=== PATIENT | female | born 1990 | race Caucasian/White ===

== ENCOUNTER 2017-07-16 17:18 | Emergency (ER) | payer OTHER, BC ==
[~2017-07-16] VITALS: Ht 165.1 cm; Wt 88.5 kg
[~2017-07-16 17:18] MED LIST: ADVIL200 MG PO; BUPROPION XL150 MG PO; DEPO-PROVE150 MG/1 M IM; DOXEPIN HCL10 MG PO; DOXEPIN HCL25 MG PO; FLOMAX0.4 MG PO; GLUCOPHAGE500 MG PO; KEFLEX500 MG PO; LORAZEPAM1 MG PO; MEDROXYPRO150 MG/1 M IM; NORCO 5-325 TA1 EACH PO; OMEPRAZOLE20 MG PO; PERCOCET 5-3251 EACH PO; SILENOR6 MG; VITAMIN D10000 UNIT PO; VITAMIN D250000 UNIT PO; ZOFRAN ODT8 MG PO; ZOFRAN4 MG PO
[2017-07-16] MEDS ORDERED: IBUPROFEN600 MG PO (22:30)
== END 2017-07-16 22:36 | disposition home or self-care (01) ==
LOC: ED 17:18
DX: S09.90XA Unspecified injury of head, initial encounter (principal); S16.1XXA Strain of muscle, fascia and tendon at neck level, initial encounter; F17.200 Nicotine dependence, unspecified, uncomplicated; Z87.442 Personal history of urinary calculi; Z88.8 Allergy status to other drugs, medicaments and biological substances; Z79.899 Other long term (current) drug therapy; V89.2XXA Person injured in unspecified motor-vehicle accident, traffic, initial encounter
CPT/HCPCS: 72040; 84703; 99283

== ENCOUNTER 2017-10-19 12:56 | Emergency (ER) | payer BC ==
[~2017-10-19] VITALS: Ht 165.1 cm; Wt 88.5 kg
[~2017-10-19 12:56] MED LIST changes: +IBUPROFEN600 MG PO
[2017-10-19] MEDS ORDERED: PERCOCET 5-3251 EACH PO (15:31)
== END 2017-10-19 15:50 | disposition home or self-care (01) ==
LOC: ED 12:56
DX: N13.2 Hydronephrosis with renal and ureteral calculous obstruction (principal); F17.200 Nicotine dependence, unspecified, uncomplicated; Z88.8 Allergy status to other drugs, medicaments and biological substances; Z87.442 Personal history of urinary calculi
CPT/HCPCS: 74176; 80053; 81001; 84703; 85025; 96374; 96375; 99284; J1885; J2405

== ENCOUNTER 2017-11-02 07:05 | Day surgery (SDC) | payer BC ==
[~2017-11-02] VITALS: Ht 165.1 cm; Wt 89.8 kg
--- NOTE | 2017-11-02 08:48 | NUR ---
PATIENT TO SURGERY.
--- NOTE | 2017-11-02 10:51 | NUR ---
11/02/17 1051 Raissa Raza 1032 PT ARRIVED TO PACU, AWAKE. VITALS TAKEN. PT CURRENTLY ON 6L VIA MASK. PER FOOD PHOTOGRAPHER PT'S O2 IMPROVES WITH COUGH AND DEEP BREATHING. PT DENIES NAUSEA. RATES PAIN 12/08. IV INFUSING. 1044 PAIN MEDICATION GIVEN.
--- NOTE | 2017-11-02 11:30 | NUR ---
PATIENT ARRIVED TO DAY SURGERY. PATIENT REPORTS PAIN 6/10 TO RIGHT FLANK, PATIENT DENIES NAUSEA. FAMILY IN ROOM WITH PATIENT. PATIENT IS HAVING SIPS OF WATER, ON 2L O2 FOR 95% 1130 PATIENT TO 1L OF O2 FOR 93%
--- NOTE | 2017-11-02 11:38 | NUR ---
PATIENT IS EATING JELLO, RADHA CRACKERS, AND SIPS OF WATER. PATIENT IS TOLERATING PO WELL, PLAN TO GIVE PAIN PILL SOON.
[2017-11-02] MEDS ORDERED: BACTRIM DS TAB1 EACH PO (11:51)
[2017-11-02] MEDS ORDERED: OXYBUTYNIN CHLOR5 MG PO (11:52)
[2017-11-02] MEDS ORDERED: PYRIDIUM200 MG PO (11:53)
[2017-11-02] MEDS ORDERED: PERCOCET 10-321 EACH PO (11:57)
--- NOTE | 2017-11-02 12:20 | NUR ---
PT UP TO BR WITH RN ASSIST. PT AMBULATES WELL AND DENIES NAUSEA AND/OR DIZZINESS. PT VOIDS 100 MLS RED URINE. PT STATES URINATION WAS "PAINFUL, ABOUT A 6 OUT OF 10." PT BACK IN BED WITH SCD'S IN PLACE AND IV FLOWING CONTINUOUSLY. CALL LIGHT AT PT LEFT SIDE.
--- NOTE | 2017-11-02 12:57 | NUR ---
DC CRITERIA MET. PT AGREES SHE IS READY TO GO HOME. PT S.O. AT BEDSIDE.
--- NOTE | 2017-11-02 13:12 | NUR ---
PT DRESSES SELF. DC INSTRUCTIONS ARE GIVEN IN PRESENCE OF PT AND S.O. PT VERBALIZES AN UNDERSTANDING OF DC INSTUCTIONS AND HAS NO FURTHER QUESTIONS. PT DC'S VIA WC FROM SHIRLEY RM 4.
--- NOTE | 2017-11-09 09:14 | OR ---
[facility] [address] [place], [place] [address] Signed DATE OF OPERATION: 11/02/2017 SURGEON: Virginia Nava MD PREOPERATIVE DIAGNOSIS: A 9 mm right ureteral calculus. POSTOPERATIVE DIAGNOSIS: A 9 mm right ureteral calculus. NAMES OF PROCEDURES: 1. Diagnostic cystoscopy with right retrograde pyelogram. 2. Right flexible nephroureteroscopy with laser lithotripsy and basket extraction of stones. 3. Right ureteral stent exchange. ANESTHESIA: General. ESTIMATED BLOOD LOSS: Minimal. COMPLICATIONS: None. SPECIMENS: Fragments of right ureteral calculus sent to the lab for stone analysis. DRAINS: A 6 x 24 cm double-J ureteral stent exchanged in the right ureter. INDICATIONS FOR PROCEDURE: Ms. Bird is a very pleasant 27-year-old female with a previous history of nephrolithiasis, who was taken to the operating room last week in an attempt to undergo definitive management of an obstructing 9 mm proximal right ureteral calculus. After multiple attempts obtaining access into the ureter and right kidney, the procedure was aborted due to the diminutive diameter of the patient's ureter. At that time, an indwelling ureteral stent was inserted into the right collecting system. She presents today to undergo definitive stone extraction. Electronically Signed By: VIRGINIA NAVA MD 11/09/17 0914 PATIENT NAME: ASHANTI BIRD OPERATIVE REPORT DATE OF : 89 REPORT #: [id number] PHYSICIAN: VIRGINIA NAVA MD PCP: AZEB GIBBONS DO REPORT IS CONFIDENTIAL AND NOT TO BE RELEASED WITHOUT AUTHORIZATION [facility] [address] [place], [place] [address] Signed OPERATIVE FINDINGS: On cystoscopy, there was no evidence of any suspicious masses, lesions, or stones. She has an indwelling right ureteral stent in place. Right retrograde pyelogram revealed multiple filling defects within the mid and upper poles of the right kidney. It also revealed adequate placement of the ureteral access sheath prior to fragmentation. Flexible nephroureteroscopy revealed a rather large stone present in the ureteropelvic junction of the right kidney. The stone was fragmented using a 270 micron fiber at energy level and rate of 8.8. The stone fragmented easily and 95% of the fragments were extracted from the right collecting system using a Zero tip basket without difficulty. The indwelling ureteral stent was removed prior to beginning the stone fragmentation process. A fresh 6 x 24 cm double-J ureteral stent was inserted at the end of the procedure and placement was confirmed on fluoroscopy. DESCRIPTION OF PROCEDURE: After informed consent was obtained, the patient was taken back to the operating room. She was transferred from the [facility] to the operating room table, where general anesthesia was induced. She was placed in the dorsal lithotomy position and her genitalia prepped and draped in a sterile fashion. Using a 30-degree lens on 22.5-Mongolian sheath, rigid cystoscope was inserted through the urethra into her bladder. I was able to visualize the indwelling right ureteral stent, which was then removed to the level of the urethral meatus. I passed a 0.035 Sensor wire into the lumen of the indwelling stent up to the right collecting system. The indwelling stent was then removed fully intact, leaving the wire behind. Over the wire, a 13/15 ureteral access sheath was passed into the right collecting system under fluoroscopic guidance. A right retrograde pyelogram was then performed. Please see above findings. The inner cannula was then removed and a flexible ureteroscope was then passed through the sheath and up into the right collecting system. Flexible nephroureteroscopy revealed the presence of an approximately 9 mm right ureteropelvic junction calculus. The stone was fragmented using a 270 micron fiber. The stone fragmented easily and the fragments were then extracted 1 x 1 using a Zero tip basket. Overall, I was able to extract approximately 95% of the stone burden. The remaining fragments are easily less than 1 mm and she should easily be able to pass the fragments. Once I was satisfied the significant amount of stone burden had been removed, I would through the ureteral scope and passed a Sensor wire back into the ureteral access sheath. The ureteral access sheath was then removed. Over the wire, a 6 x 24 cm double-J ureteral stent was passed into the collecting system under direct visualization. Once the wire was pulled, I was able to appreciate an adequate coil within the right renal pelvis along with an adequate distal coil on cystoscopy. The patient's bladder was then drained and the specimens were Electronically Signed By: VIRGINIA NAVA MD 11/09/17 0914 PATIENT NAME: ASHANTI BIRD OPERATIVE REPORT DATE OF : [birth year] REPORT #: [id number] PHYSICIAN: VIRGINIA NAVA MD PCP: AZEB GIBBONS DO REPORT IS CONFIDENTIAL AND NOT TO BE RELEASED WITHOUT AUTHORIZATION [address] [address] Signed placed in a specimen cup. The procedure was then terminated. The patient tolerated the procedure well without any complication. She will now be transferred to the postanesthesia care unit in stable condition. DISPOSITION: I discussed the details of today's procedure with the patient's mother and answered all of her questions. The patient will be scheduled to return to the clinic in three days to undergo cystoscopy with right ureteral stent extraction. She was sent home today with Bactrim Double Strength one tab p.o. b.i.d. for seven days, along with Percocet 10/325 #30 p.r.n. pain. She was also given oxybutynin and Pyridium as needed for frequency and dysuria. MD YEYO Boateng/MODL /[id number] Copies: ~ Electronically Signed By: VIRGINIA NAVA MD 11/09/17 0914 PATIENT NAME: ASHANTI BIRD OPERATIVE REPORT DATE OF : [birth year] REPORT #: [id number] PHYSICIAN: VIRGINIA NAVA MD PCP: AZEB GIBBONS DO REPORT IS CONFIDENTIAL AND NOT TO BE RELEASED WITHOUT AUTHORIZATION
== END 2017-11-02 13:10 | disposition home or self-care (01) ==
LOC: DS 07:05 → OPS 07:05 → DS 08:15 → OPS 08:15
PROVIDERS: Urology
PROC: 0TC68ZZ Extirpation of Matter from Right Ureter, Via Natural or Artificial Opening Endoscopic (ICD-10-PCS; principal; 2017-11-02 08:15)
PROC: 0T768DZ Dilation of Right Ureter with Intraluminal Device, Via Natural or Artificial Opening Endoscopic (ICD-10-PCS; 2017-11-02 08:15)
PROC: BT1DYZZ Fluoroscopy of Right Kidney, Ureter and Bladder using Other Contrast (ICD-10-PCS; 2017-11-02 08:15)
DX: N20.1 Calculus of ureter (principal); F17.210 Nicotine dependence, cigarettes, uncomplicated; K21.9 Gastro-esophageal reflux disease without esophagitis; Z88.8 Allergy status to other drugs, medicaments and biological substances; Z87.442 Personal history of urinary calculi
CPT/HCPCS: 00910; 76000; 82365; C2617; J0696; J1100; J1170; J1885; J2250; J2405; J2704; J3010; J7120

== ENCOUNTER 2020-01-27 02:21 | Emergency (ER) | payer OTHER ==
[~2020-01-27] VITALS: Ht 165.1 cm; Wt 111.1 kg
--- OUTSIDE RECORDS SUMMARY | ~2020-01-27 | XMS | Encounter Summary ---
Demographics + + + | Address | [address] | | | [place] [address] | + + + | Home Phone | | + + + | Preferred Language | Unknown | + + + | Marital Status | Single | + + + | Restorationism Affiliation | Unknown | + + + | Race | White | + + + | Ethnic Group | Not or | + + + Author + + + | Author | [facility] | | | and [place] | + + + | Organization | [facility] | | | and [place] | + + + | Address | Unknown | + + + | Phone | Unavailable | + + + Support + + + + + | Name | Relationship | Address | Phone | + + + + + | Per Pt None | ECON | NA | | | | | NA, | | + + + + + | /Fritz Eldridge | ECON | [address] | | | | | [place] | | | | | [address] | | + + + + + Care Team Providers + +------+ + | Care Registered Dental Hygienist Name | Role | Phone | + +------+ + PCP | Unavailable | + +------+ + Encounter Details +--------+ + + + + | Date | Type | Department | Care Team | Description | +--------+ + + + + | 05/14/ | Hospital | [facility] | Holly Barrera | | | 2012 | Encounter | [facility] | DO Marcia Ochoa | | | | | [facility] [address] | [place], [place] | | | | | [place], [place] | [address] | | | | | [address] | | | | | | [phone] | Pratik Black | | | | | | MD Rafael [address] | | | | | [address] [facility] | | | | | | [place] [address] | | | | | | [phone] | | | | | | | | +--------+ + + + + Social History + +-------+ +--------+------+ | Tobacco Use | Types | Packs/Day | Years | Date | | | | | Used | | + +-------+ +--------+------+ | Never Assessed | | | | | + +-------+ +--------+------+ + + + | Sex Assigned at | Date Recorded | | | | + + + | Not on file | | + + + documented as of this encounter ED Notes Holly Barrera MD - 05/14/2013 7:57 [place] [address] Patient Name: ASHANTI ELDRIDGE Provider: Unit #: [id number] Location: : 1990 DATE: 05/14/2013 HISTORY OF PRESENT ILLNESS: The patient is a 22-year-old female who comes in with chief co mplaint of abdominal pain. The patient states that she has been having bilateral flank pain that has been radiating into her right lower quadrant and pelvic area that has been ongoin g now for about 2 or 3 hours. She states that she also has had some dysuria that has been g oing on for about a day. She does did not notice that there was any blood in her urine. The patient states that she does not think that she is . She is in the middle of her m enses. She states that she has not had any loss of appetite. She has had no nausea, no vomi ting, no diarrhea. She does not complain of any kind of constipating type issues or blood i n her stool. REVIEW OF SYSTEMS There is some dysuria type issue. She has had no abnormal vaginal discharge. She is denyin g any fevers , chills, cough, trouble breathing or chest pain. The patient states that her last pelvic exam was 6 months ago. She has some cervical atypia and is seen every 6 months. She has never had any history of an STD. PAST MEDICAL HISTORY: She states that her medical problems include vitamin D deficiency an d she is prediabetic. SOCIAL HISTORY: The patient states that she smokes 1/2 pack cigarettes. She denies illicit drug use or alcohol use at this time. MEDICATIONS: The patient states that she takes metformin. ALLERGIES: SHE HAS ADVERSE REACTIONS TO SUMATRIPTAN. PHYSICAL EXAMINATION VITAL SIGNS: Show a temperature of 99.8, respiratory rate 18, heart rate 74, blood pressur e 130/93. She is 97% on room air. GENERAL: The patient is alert, appears to be in no acute distress. HEENT: Essentially normal. The oropharynx is clear. NECK: Normal on inspection. RESPIRATORY: There is no respiratory distress and breath sounds normal. CARDIOVASCULAR: She is regular rate and rhythm. ABDOMEN: Soft. She has a little bit of pain in her periumbilical area and a slight amount of pain in the right lower quadrant. There is no rebound, rigidity or guarding and she has active bowel sounds. BACK: Normal to inspection. SKIN: Warm and dry. EXTREMITIES: Nontender. NEURO/PSYCH: She is alert and oriented. EMERGENCY ROOM COURSE: The patient had a CBC that was completely normal. She had a Serum p regnancy test that was negative and she had a CBC that was completely normal. The patient h ad an IV placed. She received some Toradol and Zofran and had improvement of her pain, and her KUB showed no acute process. DIAGNOSES 1. ABDOMINAL PAIN, ETIOLOGY UNCLEAR. 2. MILD STOOL RETENTION. PLAN: The patient is to go home and hydrate. She is given a prescription for Zofran and tr amadol for pain. If pain worsens or recurs or if there is vomiting or fever greater than 10 1.5, she needs to return for a recheck. Advised to drink about half a bottle of mag citrate with 3 to four 8-ounce glasses of water to cleanse out the bowels. The patient voiced unde rstanding of discharge instructions and ambulated from the ER without difficulty. DICTATED BY: Don Barrera DO Emergency Medicine JOB #: [id number] EXT JOB #:[id number] <<Signature on File>> Sade Alfaro O107/20/12 1522 < documented in this encounter Plan of Treatment Not on filedocumented as of this encounter Procedures + +--------+ + + + | Procedure Name | Priori | Date/Time | Associated Diagnosis | Comments | | | ty | | | | + +--------+ + + + | XR ABDOMEN AP | Routin | 05/15/2013 | | Results for this | | | e | 8:50 AM | | procedure are in the | | | | PST | | results section. | + +--------+ + + + | , SERUM, | Routin | 05/14/2013 | | Results for this | | QUAL | e | 3:56 PM | | procedure are in the | | | | PST | | results section. | + +--------+ + + + | CBC WITH | Routin | 05/14/2013 | | Results for this | | DIFFERENTIAL | e | 3:46 PM | | procedure are in the | | | | PST | | results section. | + +--------+ + + + | LIPASE | Routin | 05/14/2013 | | Results for this | | | e | 3:46 PM | | procedure are in the | | | | PST | | results section. | + +--------+ + + + | COMPREHENSIVE | Routin | 05/14/2013 | | Results for this | | METABOLIC PANEL | e | 3:46 PM | | procedure are in the | | | | PST | | results section. | + +--------+ + + + | URINALYSIS, REFLEX | Routin | 05/14/2013 | | Results for this | | MICROSCOPIC AND/OR | e | 3:24 PM | | procedure are in the | | CULTURE | | PST | | results section. | + +--------+ + + + documented in this encounter Results XR Abdomen AP (05/15/2013 8:50 AM PST) + + | Specimen | + + | | + + + + + | Narrative | Performed At | + + + | [facility] | [place] | | Department [address] [place] [address] | [facility] | | [ rep [address]] [ rep [facility] | | st zip] Signed | - IMAGING | | | | | Patient Name: ASHANTI ELDRIDGE Physician: | | | HERSONAnnabelleA : 1990 Age: 22 Sex: F Unit #: [id number] | | | Exam Date: 05/14/13 Location: ER | | | Report #: [id number] Page: | | | %(RAD)RES..mtdd.print.filter("pg") of %(RAD) | | | RES..mtdd.print.filter("tpg") | | | | | | Accession Number: [id number] | | | ABDOMEN, ONE VIEW CLINICAL HISTORY: BILATERAL FLANK PAIN. | | | LOW ABDOMINAL PAIN AND DYSURIA. COMPARISON: None. | | | FINDINGS: Abdominal radiographs. No dilated loops of | | | bowel. Stool and gas are present throughout the colon. No | | | abnormal soft tissue calcifications. The osseous structures are | | | unremarkable. IMPRESSION: 1. NEGATIVE ABDOMINAL | | | RADIOGRAPHS. Dictated Date/Time: 05/15/2013 08:50 | | | Transcribed Date/Time: 05/15/2013 08:54 Purchasing Coordinator: | | | <<Signature on File>> | | | Alexis | | | Arleth Montano MD05/15/13 0957 <Electronically signed by Alexis Reinoso | | | Charmaine NAGY> Alexis Montano MD 05/15/13 0850 | | | Purchasing Coordinator: Hector Brennan05/15/13 0854 | | | | | + + + + + + + + | Performing | Address | City/State/[facility] | Phone Number | | Organization | | | | + + + + + | [facility] | [address] | [place] | [phone] | | [facility] | | [address] | | | - IMAGING | | | | + + + + + HCG, Serum, Qual (05/14/2013 3:56 PM PST) + + + + + + | Component | Value | Ref Range | Performed | Pathologist | | | | | At | Signature | + + + + + + | Preg, Serum | NEGATIVEComment: | NEGATIVE | [facility] | | | | @INTERNAL CONTROL OK?: | | [facility] | | | | RED CONTROL LINE | | MEDICAL | | | | APPEARS? YES | | CENTER - | | | | | | LABORATORY | | + + + + + + + + | Specimen | + + | | + + + + + + + | Performing | Address | City/State/Zipcode | Phone Number | | Organization | | | | + + + + + | [facility] | [address] | [place] | [phone] | | [facility] | | [address] | | | - LABORATORY | | | | + + + + + | [facility] | [address] | [place], [place] | | | [facility] | | [address] | | | - LABORATORY | | | | + + + + + CBC with Differential (05/14/2013 3:46 PM PST) + + + + + + | Component | Value | Ref Range | Performed | Pathologist | | | | | At | Signature | + + + + + + | MANUAL | NO | | [facility] | | | DIFFERENTIA | | | [facility] | | | L ? | | | MEDICAL | | | | | | CENTER - | | | | | | LABORATORY | | + + + + + + | White Blood | 11.0 | 4.0 - 11.0 K/uL | [facility] | | | Cells | | | [facility] | | | | | | MEDICAL | | | | | | CENTER - | | | | | | LABORATORY | | + + + + + + | Red Blood | 4.37 | 3.70 - 5.20 | [facility] | | | Cells | | M/uL | [facility] | | | | | | MEDICAL | | | | | | CENTER - | | | | | | LABORATORY | | + + + + + + | Hemoglobin | 13.5 | 11.5 - 16.0 | [facility] | | | | | gm/dL | [facility] | | | | | | MEDICAL | | | | | | CENTER - | | | | | | LABORATORY | | + + + + + + | Hematocrit | 39.3 | 34.0 - 47.0 % | [facility] | | | | | | [facility] | | | | | | MEDICAL | | | | | | CENTER - | | | | | | LABORATORY | | + + + + + + | MCV | 90.1 | 83.0 - 101.0 fL | [facility] | | | | | | [facility] | | | | | | MEDICAL | | | | | | CENTER - | | | | | | LABORATORY | | + + + + + + | MCH | 31.0 | 28.0 - 35.0 pg | [facility] | | | | | | [facility] | | | | | | MEDICAL | | | | | | CENTER - | | | | | | LABORATORY | | + + + + + + | MCHC | 34.5 | 32.0 - 36.0 | [facility] | | | | | g/dL | [facility] | | | | | | MEDICAL | | | | | | CENTER - | | | | | | LABORATORY | | + + + + + + | RDW-CV | 12.5 | <15.0 % | [facility] | | | | | | [facility] | | | | | | MEDICAL | | | | | | CENTER - | | | | | | LABORATORY | | + + + + + + | Platelet | 176 | 140 - 440 K/uL | [facility] | | | Count | | | [facility] | | | | | | MEDICAL | | | | | | CENTER - | | | | | | LABORATORY | | + + + + + + | % | 76.9 (H) | 45 - 75 % | [facility] | | | Neutrophils | | | [facility] | | | | | | MEDICAL | | | | | | CENTER - | | | | | | LABORATORY | | + + + + + + | % | 16.4 (L) | 20 - 45 % | [facility] | | | Lymphocytes | | | [facility] | | | | | | MEDICAL | | | | | | CENTER - | | | | | | LABORATORY | | + + + + + + | % Monocytes | 5.2 | 4 - 12 % | [facility] | | | | | | [facility] | | | | | | MEDICAL | | | | | | CENTER - | | | | | | LABORATORY | | + + + + + + | % | 0.6 | 0 - 5 % | [facility] | | | Eosinophils | | | [facility] | | | | | | MEDICAL | | | | | | CENTER - | | | | | | LABORATORY | | + + + + + + | % Basophils | 0.9 | 0 - 1 % | [facility] | | | | | | [facility] | | | | | | MEDICAL | | | | | | CENTER - | | | | | | LABORATORY | | + + + + + + | Absolute | 8.4 (H) | 1.5 - 6.6 K/uL | [facility] | | | Neutrophils | | | [facility] | | | | | | MEDICAL | | | | | | CENTER - | | | | | | LABORATORY | | + + + + + + | Absolute | 1.8 | 0.6 - 3.2 K/uL | [facility] | | | Lymphocytes | | | [facility] | | | | | | MEDICAL | | | | | | CENTER - | | | | | | LABORATORY | | + + + + + + | Absolute | 0.6 | 0.0 - 1.0 K/uL | [facility] | | | Monocytes | | | [facility] | | | | | | MEDICAL | | | | | | CENTER - | | | | | | LABORATORY | | + + + + + + | Absolute | 0.1 | 0.0 - 0.4 K/uL | [facility] | | | Eosinophils | | | [facility] | | | | | | MEDICAL | | | | | | CENTER - | | | | | | LABORATORY | | + + + + + + | Absolute | 0.1 | 0.0 - 0.1 K/uL | [facility] | | | Basophils | | | [facility] | | | | | | MEDICAL | | | | | | CENTER - | | | | | | LABORATORY | | + + + + + + + + | Specimen | + + | | + + + + + + + | Performing | Address | City/State/Zipcode | Phone Number | | Organization | | | | + + + + + | [facility] | [address] | [place], [place] | [phone] | | [facility] | | [address] | | | - LABORATORY | | | | + + + + + | [facility] | [address] | [place], [place] | | | [facility] | | [address], [facility] | | | - LABORATORY | | | | + + + + + Comprehensive Metabolic Panel (05/14/2013 3:46 PM PST) + + + + + + | Component | Value | Ref Range | Performed | Pathologist | | | | | At | Signature | + + + + + + | Glucose | 109 | 70 - 109 mg/dL | [facility] | | | | | | [facility] | | | | | | MEDICAL | | | | | | CENTER - | | | | | | LABORATORY | | + + + + + + | Calcium | 9.4 | 8.3 - 10.5 | [facility] | | | | | mg/dL | [facility] | | | | | | MEDICAL | | | | | | CENTER - | | | | | | LABORATORY | | + + + + + + | Alkaline | 63 | 40 - 110 IU/L | [facility] | | | Phosphatase | | | [facility] | | | | | | MEDICAL | | | | | | CENTER - | | | | | | LABORATORY | | + + + + + + | AST | 28 | 10 - 42 IU/L | [facility] | | | | | | [facility] | | | | | | MEDICAL | | | | | | CENTER - | | | | | | LABORATORY | | + + + + + + | ALT | 40 | 6 - 45 IU/L | [facility] | | | | | | [facility] | | | | | | MEDICAL | | | | | | CENTER - | | | | | | LABORATORY | | + + + + + + | Bilirubin | 0.6 | 0.2 - 1.0 mg/dL | [facility] | | | Total | | | [facility] | | | | | | MEDICAL | | | | | | CENTER - | | | | | | LABORATORY | | + + + + + + | Total | 6.5 | 6.0 - 7.8 gm/dL | [facility] | | | Protein | | | [facility] | | | | | | MEDICAL | | | | | | CENTER - | | | | | | LABORATORY | | + + + + + + | Albumin | 4.0 | 3.2 - 5.0 gm/dL | [facility] | | | | | | [facility] | | | | | | MEDICAL | | | | | | CENTER - | | | | | | LABORATORY | | + + + + + + | BUN | 9 | 7 - 18 mg/dL | [facility] | | | | | | [facility] | | | | | | MEDICAL | | | | | | CENTER - | | | | | | LABORATORY | | + + + + + + | Creatinine | 0.98 | 0.60 - 1.30 | [facility] | | | | | mg/dL | [facility] | | | | | | MEDICAL | | | | | | CENTER - | | | | | | LABORATORY | | + + + + + + | Estimated | >60Comment: For | >60 mL/min/A | [facility] | | | GFR | -Americans, | | [facility] | | | | please multiply the | | MEDICAL | | | | result by 1.210 | | CENTER - | | | | This is an estimated | | LABORATORY | | | | GFR and is based on a | | | | | | standard adult | | | | | | body mass (A=1.73m2) and | | | | | | serum creatinine | | | | + + + + + + | BUN/Creatin | 9.2 (L) | 12 - 20 | [facility] | | | ine Ratio | | | [facility] | | | | | | MEDICAL | | | | | | CENTER - | | | | | | LABORATORY | | + + + + + + | Na | 137 | 136 - 149 mEq/L | [facility] | | | | | | [facility] | | | | | | MEDICAL | | | | | | CENTER - | | | | | | LABORATORY | | + + + + + + | K | 3.6 | 3.5 - 5.1 mEq/l | [facility] | | | | | | [facility] | | | | | | MEDICAL | | | | | | CENTER - | | | | | | LABORATORY | | + + + + + + | Cl | 107 | 98 - 109 mEq/l | [facility] | | | | | | [facility] | | | | | | MEDICAL | | | | | | CENTER - | | | | | | LABORATORY | | + + + + + + | CO2 | 23 (L) | 24 - 31 mEq/L | [facility] | | | | | | [facility] | | | | | | MEDICAL | | | | | | CENTER - | | | | | | LABORATORY | | + + + + + + | Anion Gap | 10.6 | 6.0 - 17.0 | [facility] | | | | | | [facility] | | | | | | MEDICAL | | | | | | CENTER - | | | | | | LABORATORY | | + + + + + + + + | Specimen | + + | | + + + + + + + | Performing | Address | City/State/Zipcode | Phone Number | | Organization | | | | + + + + + | [facility] | [address] | [place] | [phone] | | [facility] | | [address] | | | - LABORATORY | | | | + + + + + | [facility] | [address] | [place] | | | [facility] | | [address], [facility] | | | - LABORATORY | | | | + + + + + Lipase (05/14/2013 3:46 PM PST) + +-------+ + + + | Component | Value | Ref Range | Performed | Pathologist | | | | | At | Signature | + +-------+ + + + | Lipase | 34 | 0 - 60 U/L | [facility] | | | | | | [facility] | | | | | | MEDICAL | | | | | | CENTER - | | | | | | LABORATORY | | + +-------+ + + + + + | Specimen | + + | | + + + + + + + | Performing | Address | City/State/Zipcode | Phone Number | | Organization | | | | + + + + + | [facility] | [address] | [place] | [phone] | | [facility] | | [address] | | | - LABORATORY | | | | + + + + + | [facility] | [address] | [place], [place] | | | [facility] | | [address] | | | - LABORATORY | | | | + + + + + Urinalysis, Reflex Microscopic and/or Culture (05/14/2013 3:24 PM PST) + + + + + + | Component | Value | Ref Range | Performed | Pathologist | | | | | At | Signature | + + + + + + | COLLECTION | CL.CATCH | | [facility] | | | METHOD 1 | | | [facility] | | | | | | MEDICAL | | | | | | CENTER - | | | | | | LABORATORY | | + + + + + + | Color, | YELLOW | | [facility] | | | Urine | | | [facility] | | | | | | MEDICAL | | | | | | CENTER - | | | | | | LABORATORY | | + + + + + + | Clarity, | CLEAR | | [facility] | | | Urine | | | [facility] | | | | | | MEDICAL | | | | | | CENTER - | | | | | | LABORATORY | | + + + + + + | Glucose, | NEGATIVE | NEGATIVE mg/dL | [facility] | | | Urine | | | [facility] | | | | | | MEDICAL | | | | | | CENTER - | | | | | | LABORATORY | | + + + + + + | Bilirubin, | NEGATIVE | NEGATIVE | [facility] | | | Urine | | | [facility] | | | | | | MEDICAL | | | | | | CENTER - | | | | | | LABORATORY | | + + + + + + | Ketones, | NEGATIVE | NEGATIVE | [facility] | | | Urine | | | [facility] | | | | | | MEDICAL | | | | | | CENTER - | | | | | | LABORATORY | | + + + + + + | Specific | >=1.030 | 1.001 - 1.030 | [facility] | | | Industry, | | | [facility] | | | Urine | | | MEDICAL | | | | | | CENTER - | | | | | | LABORATORY | | + + + + + + | Blood, | MODERATE | NEGATIVE | [facility] | | | Urine | | | [facility] | | | | | | MEDICAL | | | | | | CENTER - | | | | | | LABORATORY | | + + + + + + | pH, Urine | 7.0 | 5.0 - 8.0 | [facility] | | | | | | [facility] | | | | | | MEDICAL | | | | | | CENTER - | | | | | | LABORATORY | | + + + + + + | Protein, | NEGATIVE | NEGATIVE mg/dL | [facility] | | | Urine | | | [facility] | | | | | | MEDICAL | | | | | | CENTER - | | | | | | LABORATORY | | + + + + + + | Urobilinoge | NORMAL | NORMAL EU/dL | [facility] | | | n, Urine | | | [facility] | | | | | | MEDICAL | | | | | | CENTER - | | | | | | LABORATORY | | + + + + + + | Nitrite, | NEGATIVE | NEGATIVE | [facility] | | | Urine | | | [facility] | | | | | | MEDICAL | | | | | | CENTER - | | | | | | LABORATORY | | + + + + + + | Leukocyte | NEGATIVE | NEGATIVE | [facility] | | | Esterase, | | | [facility] | | | Urine | | | MEDICAL | | | | | | CENTER - | | | | | | LABORATORY | | + + + + + + | White Blood | 0-5 | 0 - 5 /hpf | [facility] | | | Cells, | | | [facility] | | | Urine | | | MEDICAL | | | | | | CENTER - | | | | | | LABORATORY | | + + + + + + | Red Blood | 0-3 | 0 - 3 /hpf | [facility] | | | Cells, | | | [facility] | | | Urine | | | MEDICAL | | | | | | CENTER - | | | | | | LABORATORY | | + + + + + + | Squamous | RARE | FEW /hpf | [facility] | | | Epithelial | | | [facility] | | | Cells, | | | MEDICAL | | | Urine | | | CENTER - | | | | | | LABORATORY | | + + + + + + | Bacteria, | FEW | NONE /hpf | [facility] | | | Urine | | | [facility] | | | | | | MEDICAL | | | | | | CENTER - | | | | | | LABORATORY | | + + + + + + | Culture | NO | | [facility] | | | Indicated | | | [facility] | | | | | | MEDICAL | | | | | | CENTER - | | | | | | LABORATORY | | + + + + + + + + | Specimen | + + | | + + + + + + + | Performing | Address | City/State/Zipcode | Phone Number | | Organization | | | | + + + + + | [facility] | [address] | [place] | [phone] | | [facility] | | [address] | | | - LABORATORY | | | | + + + + + | [facility] | [address] | [place] | | | [facility] | | [address] | | | - LABORATORY | | | | + + + + + documented in this encounter Visit Diagnoses Not on filedocumented in this encounter
--- OUTSIDE RECORDS SUMMARY | ~2020-01-27 | XMS | Clinical Summary ---
Demographics + + + | Address | [address] | | | [place] [address] | + + + | Home Phone | | + + + | Preferred Language | Unknown | + + + | Marital Status | Single | + + + | Yazdanism Affiliation | Unknown | + + + | Race | White | + + + | Ethnic Group | Not or | + + + Author + + + | Author | [facility] | | | and [place] | + + + | Organization | [facility] | | | and [...] + + + + + | /Fritz Bird | ECON | [address] | | | | | [place] | | | | | [address] | | + + + + + Care Team Providers + +------+ + | Care Commercial Portfolio Manager Name | Role | Phone | + +------+ + | Arnoldo Robert DO | PCP | | + +------+ + Allergies + + + + + + | Active Allergy | Reactions | Severity | Noted | Comments | | | | | Date | | + + + + + + | Sumatriptan | | | 03/16/20 | Headache | | | | | 16 | | + + + + + + Medications + + + +---------+------+------+-------+ | Medication | Sig | Dispensed | Refills | Star | End | Statu | | | | | | t | Date | s | | | | | | Date | | | + + + +---------+------+------+-------+ | buPROPion | Take 150 mg by mouth | | 0 | | | Activ | | (WELLBUTRIN XL) 150 | every morning. | | | | | e | | mg 24 hr tablet | | | | | | | + + + +---------+------+------+-------+ | doxepin (SINEQUAN) | Take 10 mg by mouth | | 0 | | | Activ | | 10 mg capsule | nightly. | | | | | e | + + + +---------+------+------+-------+ | nicotine | Place 1 patch onto | | 0 | | | Activ | | (NICODERM) 21 mg/24 | the skin every 24 | | | | | e | | hr | hours. | | | | | | + + + +---------+------+------+-------+ | LORazepam (ATIVAN) | Take 1 tablet by | 5 | 0 | 10/1 | | Activ | | 1 mg tablet | mouth nightly as | tablet | | 6/20 | | e | | | needed for Anxiety. | | | 16 | | | + + + +---------+------+------+-------+ Active Problems Not on file Social History + +-------+ +--------+------+ | Tobacco Use | Types | Packs/Day | Years | Date | | | | | Used | | + +-------+ +--------+------+ | Current Every Day | | | | | | Smoker | | | | | + +-------+ +--------+------+ + + +---------+ + | Alcohol Use | Drinks/Week | oz/Week | Comments | + + +---------+ + | No | | | | + + +---------+ + + + + | Sex Assigned at | Date Recorded | | | | + + + | Not on file | | + + + Last Filed Vital Signs + + + + + | Vital Sign | Reading | Time Taken | Comments | + + + + + | Blood Pressure | 120/64 | 03/16/2016 2:41 PM | | | | | PDT | | + + + + + | Pulse | 90 | 03/16/2016 2:41 PM | | | | | PDT | | + + + + + | Temperature | 36.8 C (98.2 F) | 03/16/2016 2:41 PM | | | | | PDT | | + + + + + | Respiratory Rate | 16 | 03/16/2016 2:41 PM | | | | | PDT | | + + + + + | Oxygen Saturation | 97% | 03/16/2016 2:41 PM | | | | | PDT | | + + + + + | Inhaled Oxygen | - | - | | | Concentration | | | | + + + + + | Weight | 88.5 kg (195 lb) | 03/16/2016 2:41 PM | | | | | PDT | | + + + + + | Height | 165.1 cm (5' 5") | 03/16/2016 2:41 PM | | | | | PDT | | + + + + + | Body Mass Index | 32.45 | 03/16/2016 2:41 PM | | | | | PDT | | + + + + + Plan of Treatment + + +-------+ + | Health Maintenance | Due Date | Last | Comments | | | | Done | | + + +-------+ + | Vaccine: | | | | | Dtap/Tdap/Td (1 - | 2 | | | | Tdap) | | | | + + +-------+ + | Cervical Cancer | | | | | Screening (Pap) | 4 | | | + + +-------+ + | Vaccine: Influenza | | | | | (#1) | 0 | | | + + +-------+ + Results Not on filefrom Last 3 Months Insurance +-------+--------+ +--------+-------+---------+------+ | Payer | Benefi | Subscriber | Effect | Phone | Address | Type | | | t Plan | ID | garett | | | | | | / | | Dates | | | | | | Group | | | | | | +-------+--------+ +--------+-------+---------+------+ | BCBS | BCBS | [id number] | 06/01/19 | | | PPO | | | OOS | [id number] | 13-Pre | | | | | | PPO | | sent | | | | +-------+--------+ +--------+-------+---------+------+ + +--------+ +--------+ + + | Guarantor Name | Accoun | Relation to | Date | Phone | Billing Address | | | t Type | Patient | of | | | | | | | | | | + +--------+ +--------+ + + | Katerin Bird | Person | Self | [birth year] | [address] | | | al/Fam | | 1990 | [phone] | [place] [address] | | | [place] | | | 3 (Home) | | | | | | | [phone] | | | | | | | 0 (Work) | | + +--------+ +--------+ + + Advance Directives + + + + + | Type | Date Recorded | Patient | 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
--- OUTSIDE RECORDS SUMMARY | ~2020-01-27 | XMS | Encounter Summary ---
Demographics + + + | Address | [address] | | | [place] [address] | + + + | Home Phone | | + + + | Preferred Language | Unknown | + + + | Marital Status | Single | + + + | Jainism Affiliation | Unknown | + + + | Race | White | + + + | Ethnic Group | Not or | + + + Author + + + | Author | [facility] | | | and [place] | + + + | Organization | [facility] | | | and [...] [place] | | | | | [address] | | + + + + + Care Team Providers + +------+ + | Care Rheostat Assembler Name | Role | Phone | + +------+ + | Arnoldo Robert DO | PCP | | + +------+ + Reason for Visit + + + | Reason | Comments | + + + | Generalized Body | | | Aches | | + + + Encounter Details +--------+ + + + + | Date | Type | Department | Care Team | Description | +--------+ + + + + | 03/16/ | Emergency | [facility] | Madhu Jones, | Medication reaction, | | 2015 | | [facility] | [place] [address] | initial encounter | | | | [place] [address] | [place] | (Primary Dx) | | | | [place] | [id number] | | | | | [address] | | | | | | [phone] | | | +--------+ + + + [...] + + documented as of this encounter Last Filed Vital Signs + + + [...] + + + documented in this encounter Discharge Instructions Instructions Madhu Jones MD - 03/16/2016Stop taking Wellbutrin. Call your doctor vahid gilbert and discuss other options. AttachmentsThe following attachments cannot be sent through Care Everywhere.DRUG REACTION, OTHER (CROATIAN)documented in this encounter Medications at Time of Discharge + + + +---------+ + + | Medication | Sig | Dispensed | Refills | Start | End Date | | | | | | Date | | + + + +---------+ + + | buPROPion | Take 150 mg by mouth | | 0 | | | | (WELLBUTRIN XL) 150 | every morning. | | | | | | mg 24 hr tablet | | | | | | + + + +---------+ + + | doxepin (SINEQUAN) | Take 10 mg by mouth | | 0 | | | | 10 mg capsule | nightly. | | | | | + + + +---------+ + + | LORazepam (ATIVAN) | Take 1 tablet by | 5 | 0 | 03/16/20 | | | 1 mg tablet | mouth nightly as | tablet | | 16 | | | | needed for Anxiety. | | | | | + + + +---------+ + + | nicotine | Place 1 patch onto | | 0 | | | | (NICODERM) 21 mg/24 | the skin every 24 | | | | | | hr | hours. | | | | | + + + +---------+ + + documented as of this encounter ED Notes Madhu Jones MD - 03/16/2016 3:21 PM PDTFormatting of this note might be different fro m the original. eMERGENCY dEPARTMENT eNCOUnter CHIEF COMPLAINT Chief Complaint Patient presents with Generalized Body Aches HPI Katerin Bird is a 25 y.o. female who presents with paresthesias and cramping. She just st arted Wellbutrin on , since that time she states she's having weird cramping in her hands and arms as well as weird electrical pains shooting all over her body. The symptoms w ere keeping her awake last night and she was unable to sleep. They continued today so she c dwaine to the ER for further evaluation. She has never had anything like this before. She was unsure if this was related to the Wellbutrin or not. She never taken Wellbutrin before. S he's had no fever, cough, or other associated symptoms. PAST MEDICAL HISTORY Past Medical History Diagnosis Date Migraine Kidney stone SURGICAL HISTORY No past surgical history on file. CURRENT MEDICATIONS Previous Medications BUPROPION (WELLBUTRIN XL) 150 MG 24 HR TABLET Take 150 mg by mouth every morning. DOXEPIN (SINEQUAN) 10 MG CAPSULE Take 10 mg by mouth nightly. NICOTINE (NICODERM) 21 MG/[address] 1 patch onto the skin every 24 hours. ALLERGIES Allergies Allergen Reactions Sumatriptan Headache FAMILY HISTORY No family history on file. SOCIAL HISTORY Social History Social History Marital Status: Single Spouse Name: N/A Number of Children: N/A Years of Education: N/A Social History Main Topics Smoking status: Current Every Day Smoker Smokeless tobacco: None Alcohol Use: No Drug Use: No Sexual Activity: Not Asked Other Topics Concern None Social History Narrative None REVIEW OF SYSTEMS All systems reviewed and negative except as noted on HPI and/or limited by patient conditio n PHYSICAL EXAM VITAL SIGNS: Temp: 36.8 C (98.2 F) Pulse: 90 Resp: 16 SpO2: 97 % BP: 120/64 mmHg Constitutional: Well developed, Well nourished, No acute distress, Non-toxic appearance. HENT: Normocephalic, Atraumatic, Oropharynx moist, No oral exudates, Nose normal. Neck- No rmal range of motion, No tenderness, Supple, No stridor. Eyes: PERRL, EOMI, Conjunctiva normal, No discharge. Respiratory: Normal breath sounds, No respiratory distress, No wheezing, No chest tenderne ss. Cardiovascular: Normal S1, S2 GI: nondistended, nontender : not done Musculoskeletal: Intact distal pulses, No edema ,Integument: Warm, Dry, No erythema, No rash. EKG Not done RADIOLOGY No results found. ED COURSE & MEDICAL DECISION MAKING Last Set of Vital Signs: Temp: 36.8 C (98.2 F) Pulse: 90 Resp: 16 SpO2: 97 % BP: 120/64 mmHg Pertinent Labs, Nurses Note, & Imaging studies reviewed. (See chart for details) This is a 25-year-old female having paresthesias and tingling most likely secondary to Well butrin which she just started. She was advised to stop taking the Wellbutrin and contact he r doctor who prescribed. She was given a prescription for 5 Ativan in the meantime so that she can sleep at night as well as to help with these episodes. She is comfortable with this plan. FINAL IMPRESSION Medication side effects BS FROM THIS VISIT OR MOST RECENT ER VISIT: Results for orders placed or performed during the hospital encounter of 05/14/13 Urinalysis, Reflex Microscopic and/or Culture Result Value Ref Range COLLECTION METHOD 1 CL.CATCH COLOR YELLOW CLARITY CLEAR GLUCOSE UA NEGATIVE NEGATIVE mg/dL BILIRUBIN UA NEGATIVE NEGATIVE KETONES UA NEGATIVE NEGATIVE Specific Virgie >=1.030 1.001 - 1.030 BLOOD UA MODERATE NEGATIVE PH UA 7.0 5.0 - 8.0 PROTEIN UA NEGATIVE NEGATIVE mg/dL UROBILINOGEN UA NORMAL NORMAL EU/dL NITRITE UA NEGATIVE NEGATIVE LEUKOCYTES ESTERASE UA NEGATIVE NEGATIVE WBC UA 0-5 0 - 5 /hpf RBC UA 0-3 0 - 3 /hpf SQUAMOUS EPITHELIAL UA RARE FEW /hpf BACTERIA UA FEW NONE /hpf Culture Indicated NO Lipase Result Value Ref Range LIPASE 34 0 - 60 U/L Comprehensive Metabolic Panel Result Value Ref Range GLUCOSE 109 70 - 109 mg/dL CALCIUM 9.4 8.3 - 10.5 mg/dL ALK PHOS 63 40 - 110 IU/L AST 28 10 - 42 IU/L ALT 40 6 - 45 IU/L BILIRUBIN TOTAL 0.6 0.2 - 1.0 mg/dL Total protein 6.5 6.0 - 7.8 gm/dL ALBUMIN 4.0 3.2 - 5.0 gm/dL BUN 9 7 - 18 mg/dL Creatinine, Serum/Plasma 0.98 0.60 - 1.30 mg/dL Estimated GFR >60 >60 mL/min/A BUN/Creatinine Ratio 9.2 (L) 12 - 20 NA 137 136 - 149 mEq/L K 3.6 3.5 - 5.1 mEq/l CL 107 98 - 109 mEq/l CO2 23 (L) 24 - 31 mEq/L ANION GAP 10.6 6.0 - 17.0 HCG, Serum, Qual Result Value Ref Range Preg, Serum NEGATIVE NEGATIVE CBC with Differential Result Value Ref Range MANUAL DIFFERENTIAL ? NO WBC 11.0 4.0 - 11.0 K/uL RBC 4.37 3.70 - 5.20 M/uL Hgb 13.5 11.5 - 16.0 gm/dL Hct 39.3 34.0 - 47.0 % MCV 90.1 83.0 - 101.0 fL MCH 31.0 28.0 - 35.0 pg MCHC 34.5 32.0 - 36.0 g/dL RDW-CV 12.5 <15.0 % Platelet Count 176 140 - 440 K/uL % Neutrophils 76.9 (H) 45 - 75 % % Lymphocytes 16.4 (L) 20 - 45 % % Monocytes 5.2 4 - 12 % % Eosinophils 0.6 0 - 5 % % Basophils 0.9 0 - 1 % Absolute Neutrophils 8.4 (H) 1.5 - 6.6 K/uL Absolute Lymphocytes 1.8 0.6 - 3.2 K/uL Absolute Monocytes 0.6 0.0 - 1.0 K/uL Absolute Eosinophils 0.1 0.0 - 0.4 K/uL Absolute Basophils 0.1 0.0 - 0.1 K/uL Madhu Jones MD 03/16/16 1523 document ed in this encounter Miscellaneous Notes ED Triage Notes - Grace Helm RN - 03/16/2016 2:40 PM PDTPt reports "throwing her neck out" two weeks ago, had some cramping/numbness in her left arm at that time, since then has cramping/shooting pain all over body. 16 2:41 PM PDTdocumented in this encounter Plan of Treatment Not on filedocumented as of this encounter Visit Diagnoses + + | Diagnosis | + + | Medication reaction, initial encounter - Primary | + + documented in this encounter
--- OUTSIDE RECORDS SUMMARY | ~2020-01-27 | XMS | Encounter Summary ---
Demographics + + + | Address | [address] | | | [place] [address] | + + + | Home Phone | | + + + | Preferred Language | Unknown | + + + | Marital Status | Single | + + + | Restoration Affiliation | Unknown | + + + | Race | White | + + + | Ethnic Group | Not or | + + + Author + + + | Author | [facility] | | | and [place] | + + + | Organization | [facility] | | | [...] /Fritz Bird | ECON | [address] | | | | | [place] | | | | | [address] | | + + + + + Care Team Providers + +------+ + | Care Bread Jockey Name | Role | Phone | + +------+ + PCP | Unavailable | + +------+ + Encounter Details +--------+ + + + + | Date | Type | Department | Care Team | Description | +--------+ + + + + | 10/14/ | Hospital | [facility] [facility] | Ary Elizabeth MD | | | 2013 | Encounter | [facility] | [address] | | | | | [address] | [address] [place], [place] | | | | | [place], [place] | [address] | | | | | [address] | | | | | | [phone] | | | +--------+ + + + [...] + + documented as of this encounter Plan of Treatment Not on filedocumented as of this encounter Visit Diagnoses Not on filedocumented in this encounter"
[~2020-01-27 02:21] MED LIST changes: +BACTRIM DS TAB1 EACH PO; +OXYBUTYNIN CHLOR5 MG PO; +PERCOCET 10-321 EACH PO; +PYRIDIUM200 MG PO
[2020-01-27] MEDS ORDERED: FLUOXETINE HCL20 MG PO (02:41)
[2020-01-27] MEDS ORDERED: HYDROXYZINE HCL50 MG PO (02:41)
[2020-01-27] MEDS ORDERED: PRAZOSIN HCL1 MG PO (02:42)
[2020-01-27] MEDS ORDERED: NORCO 5-325 TA1 EACH PO (04:58)
--- NOTE | 2020-01-28 16:31 | EKG ---
[facility] [address] [facility] [place] [address] Signed Sinus tachycardia Possible Left atrial enlargement Nonspecific T wave abnormality Abnormal ECG When compared with ECG of 21-OCT-2017 12:34, Vent. rate has increased BY 48 BPM T wave amplitude has decreased in Lateral leads Confirmed by IZABELLA THORPE DO ([id number]) on 01/28/2020 4:31:35 PM Electronically Signed By: IZABELLA THORPE DO 01/28/20 1631 PATIENT NAME: ASHANTI ELDRIDGE Electrocardiogram DATE OF : 89 PHYSICIAN: IZABELLA THORPE DO REPORT #: [id number] REPORT IS CONFIDENTIAL AND NOT TO BE RELEASED WITHOUT AUTHORIZATION
== END 2020-01-27 05:12 | disposition home or self-care (01) ==
LOC: ED 02:21
DX: S22.32XA Fracture of one rib, left side, initial encounter for closed fracture (principal); F17.200 Nicotine dependence, unspecified, uncomplicated; Z88.8 Allergy status to other drugs, medicaments and biological substances; Z79.899 Other long term (current) drug therapy; W01.0XXA Fall on same level from slipping, tripping and stumbling without subsequent striking against object, initial encounter
CPT/HCPCS: 71046; 74177; 80053; 81001; 84703; 85025; 93005; 93010; 96361; 96375; 99284-25; J1170; J2405; J7030; Q9967